=== PATIENT | female | born 1990 | race Caucasian/White ===

== ENCOUNTER 2023-05-26 06:53 | Emergency (ER) | payer BC ==
[~2023-05-26] VITALS: Ht 157.5 cm; Wt 111.1 kg
[2023-05-26] MEDS ORDERED: KETOROLAC TROMETHAMINE INJ 30 MG/ML VIAL ONE (09:53)
[2023-05-26] MEDS ORDERED: BACLOFEN (10 MG) 10 MG TABLET ONE (09:53)
[2023-05-26] MEDS ORDERED: TRAMADOL HCL 50 MG TABLET ONE (09:53)
[2023-05-26] MEDS: KETOROLAC TROMETHAMINE INJ 30 MG/ML VIAL IM ONE (09:54)
[2023-05-26] MEDS: BACLOFEN (10 MG) 10 MG TABLET PO ONE (09:55)
[2023-05-26] MEDS: TRAMADOL HCL 50 MG TABLET PO ONE (09:55)
[2023-05-26 12:38] LABS: PREGNANCY TEST URINE QUAL NEGATIVE (NEGATIVE)
[2023-05-26] MEDS ORDERED: HYDROMORPHONE 1 MG/1 ML DISP.SYRIN ONE (13:28)
[2023-05-26] MEDS: HYDROMORPHONE 1 MG/1 ML DISP.SYRIN IM ONE (13:39)
[2023-05-26] MEDS ORDERED: KETO10TA2 PO (14:20)
[2023-05-26] MEDS ORDERED: CYCL5TAB PO (14:20)
[2023-05-26] MEDS ORDERED: HYDR-4209 PO (14:20)
[2023-05-26 14:27] VITALS: BP 132/80; TEMP 98.4; O2SAT 99
== END 2023-05-26 14:28 | disposition home or self-care (01) ==
LOC: ER 07:02
DX: S39.012A Strain of muscle, fascia and tendon of lower back, initial encounter (principal); X50.0XXA Overexertion from strenuous movement or load, initial encounter; Y93.89 Activity, other specified; Y92.89 Other specified places as the place of occurrence of the external cause; Y99.8 Other external cause status
CPT/HCPCS: 99285; 72131; 96372 ×2; 84703; J1885; J1170